=== PATIENT | female | born 1960 | race Caucasian/White ===

== ENCOUNTER → 2016-09-15 | Outpatient (CLI) | payer OTHER, MEDICARE ==
--- NOTE | 2016-09-15 10:17 | US ---
Interventional Consultation Venous Doppler Sonography of Both Legs Chief Complaint: Swelling of legs, with delayed wound healing. History: 56-year-old woman is referred by Dr. Burton. She is bothered by swelling and erythema of legs , below the knees, left greater than right. She has muscular atrophy secondary to long-term steroids for Crohn disease. She has fatigue and weakness in her legs. The swelling is painful, left worse than right, with cramps in the legs and restless legs. She has two incompletely healed wounds of the left leg, 7 months and 8 months duration, respectively. Dr. Mccurdy applied Unna boots on 3 occasions. She is now going to wound care clinic here at [facility]. She is disabled. She had 2 pr egnancies. Her father and 2 of 4 siblings had problems with varicose veins. She takes frequent breaks during the day to elevate her legs for relief. She has tried compression stockings but suffers tourn iquet effect just below the knee and at the distal aspect of her left foot. She takes [place] and Ativa n frequently (7 or more days in 2 weeks) to try to reduce symptoms of pain. Technique: Color Doppler and pulse Doppler sonography of veins of both legs was performed, using supi ne and upright positions. Calf compressions, Valsalva, and weight-shifting maneuvers were used to aug ment flow. Findings: Right Leg: The deep veins of the right leg are patent. Valsalva causes reflux of up to 0.8 seconds du ration in the right common femoral vein. Mild amount of reflux trickles across the terminal valve of the right great saphenous vein, approximately 0.5 seconds in duration. Further inferiorly, no reflux is identified in the right leg. Anterolateral tributary of the saphenous vein is absent. Right great saphenous vein measures 7 mm x 6 mm diameter near the saphenofemoral junction, tapering to 4 mm x 3 m m near the knee, and 2 mm x 3 mm in the mid calf. The right short saphenous vein is small, measuring 3 mm maximum diameter in the upper calf. No reflux in the short saphenous vein. Left Leg: Trace of reflux is found in the left common femoral vein, less than the right leg. No signi ficant reflux is found within great saphenous vein, short saphenous vein, and popliteal vein. No ante rolateral tributary saphenous vein. The left great saphenous vein measures 7 mm x 7 mm maximum diamet er, near the saphenofemoral junction, tapering to 4 mm x 5 mm near the knee, and 3 mm x 4 mm in the m id calf. The left short saphenous vein is small, less than 3 mm diameter, without reflux. Tiny vein o f Giacomini is incidentally noted. Soft tissues of the calf are edematous. Edema in the left calf is prominent, near the tibia, anteriorly. There is a site of mild dark discoloration anteriorly on the s kin over the distal tibia, but no underlying vascular abnormality is found. Impression: Patent superficial and deep venous systems of both legs, with only a trace of reflux in t he right common femoral vein and upper right great saphenous vein. No significant reflux is identifie d. 35 minutes consultation, 30 minutes [id number] time - - - - - - - - - - - - - - - - - - - - - - - - - - - - - (PQRS measures: Current medications were listed in the medical record, including all known prescripti ons, [id number] medications, herbal medications, and nutritional supplements. Tobacco use: None . Prophylactic antibiotic:Unnecessary. VTE prophylaxis:Unnecessary.)
== END ==
LOC: FIMAGING 07:40
PROVIDERS: ATTEND Surgery
DX: R60.0 Localized edema (principal); R53.83 Other fatigue; R53.1 Weakness; M62.50 Muscle wasting and atrophy, not elsewhere classified, unspecified site; Z79.52 Long term (current) use of systemic steroids; K50.90 Crohn's disease, unspecified, without complications

== ENCOUNTER → 2017-03-07 | Outpatient (CLI) | payer OTHER, MEDICARE | LOC: FIMAGING 08:00 | PROVIDERS: ATTEND Neurological Surgery | DX: M48.06 Spinal stenosis, lumbar region (principal); M48.02 Spinal stenosis, cervical region; M51.86 Other intervertebral disc disorders, lumbar region; M53.86 Other specified dorsopathies, lumbar region; M50.822 Other cervical disc disorders at C5-C6 level ==

== ENCOUNTER 2018-01-16 06:31 | Day surgery (SDC) | payer OTHER, MEDICARE ==
[2018-01-16] MEDS ORDERED: NALOXONE HCL 0.4 MG/ML INJ IVP PRN ×2 (07:12→08:56)
[2018-01-16] MEDS ORDERED: MEPERIDINE 25 MG/ML SYR IVP PRN (07:12)
[2018-01-16] MEDS ORDERED: MIDAZOLAM 2 MG/2 ML VIAL IVP PRN (07:12)
[2018-01-16] MEDS ORDERED: FLUMAZENIL 0.5 MG/5 ML MDV IVP PRN (07:12)
[2018-01-16] MEDS ORDERED: NS 1,000 ML IV SCH (07:15)
[2018-01-16] MEDS ORDERED: IOPAMIDOL (ISOVUE-300) 100 ML BTL ONE (07:56)
--- NOTE | 2018-01-16 08:31 | PDGENHP ---
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 ANXIETY, DEPRESSION, PANIC ATTACKS. Relevant Physical Exam: 4/10 IN JOINTS,LEGS. PRESSURE IN FLANK AREA. Cardiorespiratory Assessment: RRR, CTA
[2018-01-16] MEDS ORDERED: ACETAMINOPHEN 500 MG TAB PO PRN (08:56)
[2018-01-16] MEDS ORDERED: NS 500 ML IV PRN (08:56)
[2018-01-16] MEDS ORDERED: ONDANSETRON 4 MG/2 ML VIAL IVP PRN ×2 (08:56→10:01)
[2018-01-16] MEDS ORDERED: ALBUTEROL 3 ML DEYVIAL IH PRN (08:56)
--- NOTE | 2018-01-16 08:59 | PDANEPAE ---
ANE History of Present Illness perc Nephrostomy ANE Past Medical History - Cardiovascular History Hx Hypertension: Yes Hx Arrhythmias: No Hx Chest Pain: No Hx Coronary Artery / Peripheral Vascular Disease: Yes Hx CHF / Valvular Disease: No Hx Palpitations: No Cardiovascular History Comment: [place] 2006. IDIOPATHIC CARDIOMYOPATHY - Pulmonary History Hx COPD: No Hx Asthma/Reactive Airway Disease: No Hx Recent Upper Respiratory Infection: No Hx Oxygen in Use at Home: Yes O2 in Use at Home (L/minute): 3L NC and 4L w/ bipap for sleep; Hx Sleep Apnea: Yes Sleep Apnea Screening Result - Last Documented: Positive Pulmonary History Comment: TREVON USES BIPAP INSTRUCTED TO BRING DOS - Neurologic History Hx Cerebrovascular Accident: Yes Hx Seizures: No Hx Dementia: No Neurologic History Comment: 2013 RESIDUAL ISSUES WITH COORDINATION - Endocrine History Hx Diabetes: Yes Endocrine History Comment: NIDDM. HYPOTHYROID - Renal History Hx Renal Disorders: Yes Renal History Comment: MULT PREV STONE REMVL. CHRONIC UTI'S - Liver History Hx Hepatic Disorders: Yes Hepatic History Comment: IDIOPATHIC LESIONS - Neurological & Psychiatric Hx Hx Neurological and Psychiatric Disorders: Yes Neurological / Psychiatric History Comment: ANXIETY/DEPRESSION - Cancer History Hx Cancer: Yes Cancer History Comment: THYROID. SKULL - Congenital Disorder History Hx Congenital Disorders: No - GI History Hx Gastrointestinal Disorders: Yes Gastrointestinal History Comment: CROHNS. IBS. DIVERTICULOSIS. REFLUX. THROAT/COLON INTERMITTENT SWALLOWING DIFFICULTY. HEMORRHOIDS - Other Health History Other Health History: CHRONIC PAIN SYNDROME. EASILY BRUISES. PREV GOUT. NEUROPATHY - Chronic Pain History Chronic Pain: Yes (JOINTS,LEGS,SKIN TOUCHING) - Surgical History Prior Surgeries: ESOPHAGEAL DILATION 2014. 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 HYSTERECTOMY WITH BSO. TOTAL THYROIDECTOMY FOR CA. A[place]ER. LITHOTRIPSY/ STENTS. SKIN CA SKULL. LT LOWER EXT CELLULITIS/LYMPHEDEMA ANE Review of Systems Review of Systems: - Exercise capacity METS (RN): 3 METS ANE Patient History - Allergies Allergies/Adverse Reactions: adhesive tape Allergy (Verified 01/06/18 10:13) Estrogens Allergy (Verified 01/06/18 10:13) Swelling/neck,face,throat - Home Medications Home Medications: Albuterol [Proventil Inhaler HFA (*)] 1 - 2 puffs IH Q4H PRN 01/06/18 [Last Taken 12/19/17] Alendronate Sodium [Fosamax 70 MG (*)] 70 mg PO QUIÑONES@0700 01/06/18 [Last Taken ] Aspirin [Aspirin 81mg (*)] 81 mg PO DAILY 01/06/18 [Last Taken 01/12/18] Beclomethasone Dipropionate [Qnasl] 2 spray EACHNARE DAILY 01/06/18 [Last Taken 01/13/18] Budesonide [Budesonide EC] 9 mg PO DAILY 01/06/18 [Last Taken 01/15/18] Budesonide/Formoterol 160/4.5 [Symbicort 160-4.5 Mcg Inh (*)] 2 puffs IH DAILY 01/06/18 [Last Taken 01/11/18] Carvedilol [Coreg (*)] 25 mg PO BIDMEAL 01/06/18 [Last Taken 01/16/18] Cyanocobalamin [Vitamin B12 1000MCG/ML (*)] 1,000 mcg IM Q30D 01/06/18 [Last Taken 12/29/17] Dicyclomine [Bentyl 20 MG (*)] 20 mg PO QID 01/06/18 [Last Taken 01/15/18] Ergocalciferol [Vitamin D2 (*)] 50,000 unit PO Q2D 01/06/18 [Last Taken 01/11/18 ] Furosemide [Lasix 40 MG (*)] 80 mg PO DAILY 01/06/18 [Last Taken 01/14/18] Hydrocodone/Acetaminophen [[place] 7.5-325 Tablet] 1 each PO Q8HRS PRN MDD 3 tabs 01/06/18 [Last Taken 01/15/18] LORazepam [Ativan (*)] 2 mg PO HS 01/06/18 [Last Taken 01/15/18] Levothyroxine [Synthroid 175 mcg (*)] 175 mcg PO DAILY06 01/06/18 [Last Taken ] Metolazone [Zaroxolyn 5MG (*)] 5 mg PO DAILY 01/06/18 [Last Taken 01/14/18] [place]-3 Fatty Acids [Fish Oil 1000 mg (*)] 4,000 mg PO DAILY 01/06/18 [Last Taken 01/14/18] Omeprazole 40 mg PO BID 01/06/18 [Last Taken 01/15/18] Potassium Citrate [Potassium Citrate ER] 30 meq PO BID 01/06/18 [Last Taken 10/02] Ranitidine HCl [Zantac] 150 mg PO HS 01/06/18 [Last Taken 01/15/18] Rosuvastatin Calcium [Crestor 10mg (RX)] 10 mg PO DAILY 01/06/18 [Last Taken 10/30] Sertraline HCl [Zoloft 100mg (*)] 200 mg PO HS 01/06/18 [Last Taken 01/15/18] Terazosin HCl [Hytrin 2 MG (*)] 4 mg PO BID 01/06/18 [Last Taken 01/16/18] clonIDINE [Catapres-Tts (*)] 0.2 mg TD SA 01/06/18 [Last Taken 01/14/18] glyBURIDE [Glyburide] 5 mg PO BID 01/06/18 [Last Taken 01/15/18] metFORMIN SR [Glucophage XR 500 mg (*)] 500 mg PO BID 01/06/18 [Last Taken 01/14] tiZANidine HCL [Zanaflex 2MG (*)] 2 mg PO TID PRN 01/06/18 [Last Taken 01/12/18] traZODone [traZODONE 50MG (*)] 50 mg PO HS PRN 01/06/18 [Last Taken 01/13/18] Cipro 500 mg PO BID 01/10/18 [Last Taken 01/15/18] Symbicort 160-4.5 Mcg Inh (*) 2 puffs IH DAILY 01/10/18 [Last Taken 01/13/18] - Smoking Hx Smoking Status: Never smoked - Family Anes Hx Family Hx Anesthesia Complications: sister had "a block that went to high"; she' s had sx since without problem. ANE Labs/Vital Signs - Vital Signs Blood Pressure: 125/76 Heart Rate: 76 Respiratory Rate: 16 O2 Sat (%): 94 Height: 167.64 cm Weight: 83.007 kg ANE Physical Exam - Airway Neck exam: FROM Mallampati Score: Class 2 Mouth exam: normal dental/mouth exam - Pulmonary Pulmonary: clear to auscultation - Cardiovascular Cardiovascular: regular rate and rhythym - ASA Status ASA Status: III ANE Anesthesia Plan Anesthesia Plan: general endotracheal anesthesia
[2018-01-16] MEDS ORDERED: fentaNYL 100 MCG/2 ML INJ ONE ×4 (09:11→16:03)
[2018-01-16] MEDS ORDERED: PROPOFOL 200 MG/20 ML VIAL ONE (09:11)
[2018-01-16] MEDS ORDERED: SUCCINYLCHOLINE CHLORIDE 200 MG/10 ML SYR IVP ONE (09:12)
[2018-01-16] MEDS ORDERED: ONDANSETRON 4 MG/2 ML VIAL ONE (09:31)
[2018-01-16] MEDS ORDERED: ACETAMINOPHEN 325 MG TAB PO PRN (10:01)
--- NOTE | 2018-01-16 10:01 | PDRADPN ---
Radiology Procedure Note Date of Procedure: 01/16/18 Radiologist: Kellee Willams Anesthesia: GET(General Endotracheal) Pre-op Diagnosis: RT KIDNEY STONE Post-op Diagnosis: SAME Indication: PRE-OP ACCESS Procedure: RT PERC NEPH Finding(s): LOWER POLE STONE ACCESS OBTAINED. Inf/Abcess present in the surg proc area at time of surgery?: No Complications: NONE Drains: Nephrostomy (RT 8 FR, SUTURED IN.)
[2018-01-16] MEDS: fentaNYL 100 MCG/2 ML INJ IVP PRN ×7 (10:30→16:06)
[2018-01-16] MEDS: HYDROCODONE/APAP 10/325 TAB PO PRN ×2 (12:33→15:41)
[2018-01-16 17:22] VITALS: BP 133/66
== END 2018-01-16 17:23 | disposition home or self-care (01) ==
LOC: FIMAGING 06:31
PROVIDERS: ATTEND Specialist
PROC: 0T9030Z Drainage of Right Kidney with Drainage Device, Percutaneous Approach (ICD-10-PCS; principal; 2018-01-16 09:00)
DX: N20.0 Calculus of kidney (principal); I10 Essential (primary) hypertension; G47.33 Obstructive sleep apnea (adult) (pediatric); E03.9 Hypothyroidism, unspecified; E11.9 Type 2 diabetes mellitus without complications; G89.29 Other chronic pain
CPT/HCPCS: 50432; C1729; C1769; J0330; J0696; J1644; J2405; J2704; J3010; Q9967